=== PATIENT | male | born 1970 | race African-American/Black ===

== ENCOUNTER 2023-08-25 23:44 | Emergency (ER) | payer MEDICARE ==
[~2023-08-25] VITALS: Ht 180.3 cm; Wt 75.0 kg
[2023-08-25 23:49] VITALS: BP 98/60; PULSE 101; RESP 16; TEMP 98.1; O2SAT 98
[2023-08-26] MEDS ORDERED: KETOROLAC 60MG/2ML VIAL IM ONE
== END 2023-08-26 04:23 | disposition home or self-care (01) ==
LOC: ER 23:44
DX: M79.642 Pain in left hand (principal); E11.9 Type 2 diabetes mellitus without complications; Z88.8 Allergy status to other drugs, medicaments and biological substances; W18.39XA Other fall on same level, initial encounter; Y93.89 Activity, other specified; Y92.89 Other specified places as the place of occurrence of the external cause; Y99.8 Other external cause status
CPT/HCPCS: 99284; 73110; 73130; 29125; J1885

== ENCOUNTER 2023-09-01 22:08 | Emergency (ER) | payer MEDICARE, MEDICAID ==
[~2023-09-01] VITALS: Ht 175.3 cm; Wt 77.0 kg
[2023-09-01 22:29] VITALS: BP 124/82; PULSE 93; RESP 16; TEMP 98.2; O2SAT 100
[2023-09-01] MEDS ORDERED: IBUPROFEN 600MG TABLET PO ONE (22:30)
[2023-09-02] MEDS ORDERED: IBUP-2029 MT (01:27)
== END 2023-09-02 03:26 | disposition home or self-care (01) ==
LOC: ER 22:08
DX: M79.642 Pain in left hand (principal); F10.20 Alcohol dependence, uncomplicated; E11.9 Type 2 diabetes mellitus without complications; F15.10 Other stimulant abuse, uncomplicated; Y90.9 Presence of alcohol in blood, level not specified
CPT/HCPCS: 73130; 99283